=== PATIENT | female | born 1955 | race Two or more races ===

== ENCOUNTER 2019-02-27 10:38 | Emergency (ER) | payer OTHER ==
[~2019-02-27] VITALS: Ht 154.9 cm; Wt 83.5 kg
[~2019-02-27 10:38] MED LIST: CIPRO500 MG PO; FLAGYL500MG PO; PROTONIX20 MG; ULTRACET PO; ZOLOFT25 MG
[2019-02-27] MEDS ORDERED: BENTYL10 MG/1 ML (11:02)
== END 2019-02-27 13:43 | disposition home or self-care (01) ==
LOC: ER 10:38
DX: K58.9 Irritable bowel syndrome, unspecified (principal)

== ENCOUNTER 2021-08-30 17:23 | Emergency (ER) | payer OTHER ==
[~2021-08-30] VITALS: Ht 154.9 cm; Wt 82.6 kg
[~2021-08-30 17:23] MED LIST changes: +BENTYL10 MG/1 ML
[2021-08-30] MEDS ORDERED: COZAAR25 MG (17:39)
== END 2021-08-31 00:06 | disposition home or self-care (01) ==
LOC: ER 17:23
DX: K57.30 Diverticulosis of large intestine without perforation or abscess without bleeding (principal); Z88.2 Allergy status to sulfonamides; Z91.013 Allergy to seafood; Z91.011 Allergy to milk products; K57.32 Diverticulitis of large intestine without perforation or abscess without bleeding

== ENCOUNTER 2022-02-17 13:58 | Emergency (ER) | payer OTHER ==
[~2022-02-17] VITALS: Ht 154.9 cm; Wt 83.0 kg
[~2022-02-17 13:58] MED LIST changes: +COZAAR25 MG
[2022-02-17] MEDS ORDERED: LEVSIN0.125 MG PO (15:04)
[2022-02-17] MEDS ORDERED: PEPCID20 MG PO (20:06)
[2022-02-17] MEDS ORDERED: INTESTINEX680 M1 PO (20:06)
== END 2022-02-17 20:10 | disposition home or self-care (01) ==
LOC: ER 13:58
DX: K52.9 Noninfective gastroenteritis and colitis, unspecified (principal); K57.90 Diverticulosis of intestine, part unspecified, without perforation or abscess without bleeding

== ENCOUNTER 2022-02-23 02:54 | Inpatient (IN) | payer OTHER ==
[~2022-02-23] VITALS: Ht 152.4 cm; Wt 79.4 kg
[~2022-02-23 02:54] MED LIST changes: +INTESTINEX680 M1 PO; +LEVSIN0.125 MG PO; +PEPCID20 MG PO
[2022-02-23] MEDS ORDERED: CIPRO250 MG (03:01)
[2022-02-23] MEDS ORDERED: FLAGYL375 MG (03:01)
--- NOTE | 2022-02-23 03:14 | NUR ---
PACIENTE ALERTA Y ORIENTADA X3. REFIERE VENIR POR DOLOR EN EL CUADRANTE INFERIOR DERECHO DE ABDOMEN, NAUSEAS, 2 EPISODIOS DE ESCRETA PASTOSA DESDE LAS 11:00PM DE ITAL[place]. REFIERE LE DIAGNOSTICARON COLITIS Y ESTAR EN TRATAMIENTO MEDICO DE CIPRO, FLAGYL Y LEVSIN.
--- NOTE | 2022-02-23 07:27 | NUR ---
SE RECIBE PTE ALERTA EN CAMA BAJA CON BARANDAS ELEVADAS POR SEGURIDAD. SE OBSERVA CON BUEN PATRON RESPIRATORIO. RECIBIENDO IV FLUIDS. AREA DE VENOPUNCION ESPERANZA DE EDEMA Y ERITEMA. PEND UA. SE MANTIENE BAJO OBSERVACION POR CAMBIOS SIGNIFICATIVOS
== END 2022-03-05 21:47 | disposition home or self-care (01) | DRG 391 ==
LOC: ER 02:54 → MEDJ 22:09 → MEDI 03-02 11:46
PROVIDERS: ADMIT Internal Medicine; ATTEND Internal Medicine
PROC: BW21ZZZ Computerized Tomography (CT Scan) of Abdomen and Pelvis (ICD-10-PCS; 2022-02-23)
PROC: B54DZZZ Ultrasonography of Bilateral Lower Extremity Veins (ICD-10-PCS; 2022-02-23)
PROC: 02HV33Z Insertion of Infusion Device into Superior Vena Cava, Percutaneous Approach (ICD-10-PCS; principal; 2022-02-26)
PROC: BW2110Z Computerized Tomography (CT Scan) of Abdomen and Pelvis using Low Osmolar Contrast, Unenhanced and Enhanced (ICD-10-PCS; 2022-03-01)
DX: K57.32 Diverticulitis of large intestine without perforation or abscess without bleeding (principal); U07.1 COVID-19; K52.9 Noninfective gastroenteritis and colitis, unspecified; K29.60 Other gastritis without bleeding; M79.7 Fibromyalgia

== ENCOUNTER 2024-01-05 01:38 | Inpatient (IN) | payer OTHER ==
[~2024-01-05] VITALS: Ht 154.9 cm; Wt 83.5 kg
[~2024-01-05 01:38] MED LIST changes: +CIPRO250 MG; +FLAGYL375 MG
[2024-01-05] MEDS ORDERED: ARAVA10 MG PO (01:50)
[2024-01-05] MEDS ORDERED: ORAPRED ODT10 MG (01:50)
[2024-01-05] MEDS ORDERED: PANTOPRAZOLE SO20 MG PO (01:50)
[2024-01-05] MEDS ORDERED: VITAMIN D3125 MC1 PO (01:51)
[2024-01-05] MEDS ORDERED: RINGERS SOLUTION,LACTATED 1,000 ML IV STA (02:54)
[2024-01-05] MEDS ORDERED: MEPERIDINE HCL/PF 50 MG/ML VIAL IM STA (02:55)
[2024-01-05] MEDS ORDERED: HYOSCYAMINE SULFATE 0.125 MG TAB.SUBL SL STA (02:55)
[2024-01-05] MEDS ORDERED: PROMETHAZINE HCL 50 MG/ML AMPUL IM STA (02:56)
[2024-01-05 04:09] LABS: HEMATOCRIT 39.7 % (36.0-45.00); HEMOGLOBIN 13.4 g/dL (12.0-15.00); MEAN CELL VOLUME 88.9 fL (80.00-100.00); MEAN CORPUSCULAR HEMOGLOBIN 30.1 pg (27.00-32.0); MEAN CORPUSCULAR HGB CONC 33.9 g/dl (32.0-36.0); PLATELET COUNT 211 K/uL (150-450); RED BLOOD COUNT 4.46 M/uL (4.00-6.00); RED CELL DISTRIBUTION WIDTH 14.1 % (11.5-14.5)
[2024-01-05 04:17] LABS: INR 0.95; PROTHROMBIN TIME 10.4 SECONDS (9.0-11.5)
[2024-01-05 04:22] LABS: ALBUMIN 3.5 gm/dL (3.4-5.0); BILIRUBIN TOTAL 0.25 mg/dL (0.3-1.2); CALCIUM 9.3 mg/dL (8.5-10.1); CREATININE SERUM 0.69 mg/dL (0.55-1.02); GFR 84.36; POTASSIUM 4.15 mEq/L (3.5-5.1); TOTAL PROTEIN 7.5 gm/dL (6.4-8.2)
[2024-01-05] MEDS ORDERED: PIPERACILLIN/TAZOBACTAM SODIUM 3.375 GM VIAL IV STA (04:33)
[2024-01-05 04:51] LABS: PH,URINE 5.5 (5.0-8.0); URINE APPEARANCE Clear; URINE BILIRRUBIN Negative (NEGATIVE); URINE BLOOD Negative; URINE COLOR Yellow; URINE GLUCOSE Negative (NEGATIVE); URINE KETONE Negative (NEGATIVE); URINE LEUKOCYTE Moderate; URINE NITRATE Negative; URINE PROTEIN Negative (NEGATIVE); URINE UROBILINOGEN 0.2 E.U./dl
[2024-01-05 04:55] LABS: URINE BACTERIA 94.4 uL (0.0-1933); URINE EPITHELIAL CELLS 17.4 uL (0.0-38.8); URINE RBC 2.7 uL (0.0-20.8); URINE WBC 309.1 uL (0.0-23.2)
[2024-01-05 05:06] LABS: URINE CAST 1.06 uL (0.0-1.40); URINE EPITHELIAL CELLS 0-4 /HPF
[2024-01-05] MEDS ORDERED: MEPERIDINE HCL/PF 50 MG/ML VIAL IV ONE (08:45)
[2024-01-05] MEDS ORDERED: DEXTROSE 5 % AND 0.9 % NACL 1,000 ML IV SCH (14:00)
[2024-01-05] MEDS ORDERED: HYDROCORTISONE SODIUM SUCC/PF 100 MG VIAL IV SCH ×2 (14:22→17:00)
[2024-01-05] MEDS ORDERED: ENOXAPARIN SODIUM 40 MG/0.4 ML SYRINGE SUBCUTANEO SCH (14:22)
[2024-01-05] MEDS ORDERED: FAMOTIDINE/PF 20 MG/10 ML SYRINGE IV SCH (14:23)
[2024-01-05] MEDS ORDERED: HYOSCYAMINE SULFATE 0.125 MG TAB.SUBL SL PRN (14:30)
[2024-01-05] MEDS ORDERED: ONDANSETRON HCL 2 MG/ML VIAL IV PRN (15:45)
[2024-01-05] MEDS ORDERED: MEPERIDINE HCL/PF 25 MG/ML VIAL IM PRN (15:45)
[2024-01-05] MEDS ORDERED: PROMETHAZINE HCL 25 MG/ML AMPUL IV PRN (15:45)
[2024-01-05 17:08] VITALS: BP 110/61; O2SAT 98
[2024-01-05 17:11] VITALS: BP 110/61
[2024-01-05 17:50] VITALS: BP 112/55; O2SAT 99
[2024-01-05] MEDS ORDERED: PIPERACILLIN/TAZOBACTAM SODIUM 3.375 GM in 0.9 % SODIUM CHLORIDE 100 ML IV SCH (18:00)
[2024-01-06 00:54] VITALS: BP 124/64; O2SAT 99
[2024-01-06 04:08] VITALS: BP 110/69
[2024-01-06 06:14] LABS: HEMATOCRIT 34.4 % (36.0-45.00); HEMOGLOBIN 11.7 g/dL (12.0-15.00); MEAN CELL VOLUME 90.3 fL (80.00-100.00); MEAN CORPUSCULAR HEMOGLOBIN 30.8 pg (27.00-32.0); MEAN CORPUSCULAR HGB CONC 34.2 g/dl (32.0-36.0); PLATELET COUNT 185 K/uL (150-450); RED BLOOD COUNT 3.81 M/uL (4.00-6.00)
[2024-01-06 06:50] LABS: ERYTHROCYTE SEDIMENTATION RATE 68 mm/hr
[2024-01-06 07:11] LABS: BILIRUBIN TOTAL 0.61 mg/dL (0.3-1.2); CALCIUM 8.6 mg/dL (8.5-10.1); CREATININE SERUM 0.59 mg/dL (0.55-1.02); GFR 101.06; GLOBULINA 3.2 G/DL (2.4-3.5); MAGNESIUM 2.2 mg/dL (1.8-2.4); PHOSPHOROUS 3.8 mg/dL (2.5-4.9); POTASSIUM 3.95 mEq/L (3.5-5.1); TOTAL PROTEIN 6.2 gm/dL (6.4-8.2)
[2024-01-06 07:12] LABS: C-REACTIVE PROTEIN 12.6 MG/DL (0.00-0.29)
[2024-01-06 08:19] VITALS: BP 111/65; O2SAT 99
[2024-01-06] MEDS ORDERED: LACTOBACILLUS ACIDOPHILUS 1 CAP CAP PO SCH (17:00)
[2024-01-06] MEDS ORDERED: HYDROCORTISONE SODIUM SUCC/PF 50 MG/ML ML IV SCH ×2 (17:00)
[2024-01-06 17:17] VITALS: BP 127/60; O2SAT 97
[2024-01-06] MEDS ORDERED: FAMOTIDINE/PF 20 MG/2 ML VIAL IV SCH (21:00)
[2024-01-07 01:18] VITALS: BP 128/61; O2SAT 94
[2024-01-07 08:52] VITALS: BP 125/69; O2SAT 97
[2024-01-07] MEDS ORDERED: PREDNISONE 10 MG TABLET PO SCH (09:00)
[2024-01-07] MEDS ORDERED: METHYLPREDNISOLONE SOD SUCC 40 MG VIAL IV SCH (09:00)
[2024-01-07 17:15] VITALS: BP 143/85; O2SAT 97
[2024-01-07 22:17] VITALS: BP 155/73; O2SAT 97
[2024-01-08 00:36] VITALS: BP 110/66
[2024-01-08 02:21] LABS: ob POSITIVE (NEGATIVE)
[2024-01-08 08:21] VITALS: BP 132/50; O2SAT 99
[2024-01-08 10:32] LABS: HEMATOCRIT 36.6 % (36.0-45.00); HEMOGLOBIN 12.3 g/dL (12.0-15.00); MEAN CELL VOLUME 89.6 fL (80.00-100.00); MEAN CORPUSCULAR HEMOGLOBIN 30.2 pg (27.00-32.0); MEAN CORPUSCULAR HGB CONC 33.7 g/dl (32.0-36.0); PLATELET COUNT 208 K/uL (150-450); RED BLOOD COUNT 4.09 M/uL (4.00-6.00); RED CELL DISTRIBUTION WIDTH 13.7 % (11.5-14.5)
[2024-01-08 11:24] LABS: ERYTHROCYTE SEDIMENTATION RATE 63 mm/hr
[2024-01-08 11:25] LABS: CREATININE SERUM 0.71 mg/dL (0.55-1.02); GFR 81.62; MAGNESIUM 2.2 mg/dL (1.8-2.4); PHOSPHOROUS 3.2 mg/dL (2.5-4.9); POTASSIUM 3.78 mEq/L (3.5-5.1)
[2024-01-08 11:29] LABS: C-REACTIVE PROTEIN 2.85 MG/DL (0.00-0.29)
[2024-01-08] MEDS ORDERED: ACETAMINOPHEN 500 MG GEL..CAP PO PRN (11:45)
[2024-01-08 16:54] VITALS: BP 139/84; O2SAT 98
[2024-01-08 21:56] VITALS: BP 140/81; O2SAT 97
[2024-01-09] VITALS: BP 116/65; O2SAT 98
[2024-01-09 05:00] VITALS: BP 121/59; O2SAT 97
[2024-01-09 07:57] LABS: HEMATOCRIT 37.8 % (36.0-45.00); HEMOGLOBIN 12.7 g/dL (12.0-15.00); MEAN CELL VOLUME 91.2 fL (80.00-100.00); MEAN CORPUSCULAR HEMOGLOBIN 30.7 pg (27.00-32.0); MEAN CORPUSCULAR HGB CONC 33.6 g/dl (32.0-36.0); PLATELET COUNT 218 K/uL (150-450); RED BLOOD COUNT 4.15 M/uL (4.00-6.00); RED CELL DISTRIBUTION WIDTH 13.3 % (11.5-14.5)
[2024-01-09 08:53] VITALS: BP 152/71; O2SAT 100
[2024-01-09] MEDS ORDERED: SODIUM CHLORIDE 0.45 % 1,000 ML IV SCH (10:30)
[2024-01-09 16:26] VITALS: BP 137/76; O2SAT 99
[2024-01-09] MEDS ORDERED: INTESTINEX680 M1 PO (20:18)
[2024-01-09] MEDS ORDERED: AMOX1TAB5 PO (20:18)
[2024-01-09] MEDS ORDERED: HYOSCYAMINE0.125 M1 SL (20:18)
[2024-01-09] MEDS ORDERED: CARAFATE1 GM/10 ML PO (20:18)
[2024-01-09] MEDS ORDERED: PROTONIX40 MG PO (20:20)
[2024-01-09] MEDS ORDERED: PEPCID AC20 MG PO (20:20)
== END 2024-01-09 20:33 | disposition home or self-care (01) | DRG 392 ==
LOC: ER 01:38 → MEDI 15:32
PROVIDERS: ADMIT Internal Medicine Geriatric Medicine; ATTEND Internal Medicine Geriatric Medicine
PROC: BW21YZZ Computerized Tomography (CT Scan) of Abdomen and Pelvis using Other Contrast (ICD-10-PCS; principal; 2024-01-05)
DX: K57.92 Diverticulitis of intestine, part unspecified, without perforation or abscess without bleeding (principal); E27.40 Unspecified adrenocortical insufficiency; M06.9 Rheumatoid arthritis, unspecified